=== PATIENT | female | born 1950 | race Caucasian/White ===

== ENCOUNTER 2019-12-20 15:54 | Emergency (ER) | payer OTHER, SELFPAY ==
[2019-12-20 16:20] VITALS: BP 172/82; PULSE 61; RESP 18; TEMP 36.8; O2SAT 97; BMI 26.6
--- NOTE | 2019-12-20 16:26 | ECG_ITS ---
Test Reason : CHEST PAIN Blood Pressure : / mmHG Vent. Rate : 070 BPM Atrial Rate : 070 BPM P-R Int : 154 ms QRS Dur : 088 ms QT Int : 400 ms P-R-T Axes : 043 031 067 degrees QTc Int : 432 ms Sinus rhythm with changeto Left bundle branch block in precordial leads Nonspecific ST abnormality Abnormal ECG Left bundle branch block is new Referred By: Ramon Mayo Electronically Signed By:DAVID MCCORD MD
--- NOTE | 2019-12-20 16:26 | XR_ITS ---
EXAMINATION: XR CHEST CLINICAL INFORMATION: Left-sided chest pain COMPARISON: Chest radiograph 08/18/2016 TECHNIQUE: Frontal view of the chest was obtained. FINDINGS: No significant abnormality is noted involving the heart, lungs, mediastinum, bony thorax or soft tissues. XR/XR chest 1V IMPRESSION: Unremarkable examination.
--- NOTE | 2019-12-20 16:43 | ED.CHESTPAIN ---
HPI - Chest Pain General Chief Complaint: Chest Pain Stated Complaint: CHEST PAIN Time Seen by Provider: 12/20/19 16:26 Source: patient Mode of arrival: ambulatory Limitations: no limitations History of Present Illness HPI narrative: patient with no significant past cardiac history complaining of vague left-sided chest pain followed by bronchitis for last 3 weeks took a course of Z-Latrell felt better but still having the pain especially in the back. At this time patient denies any significant cough no fever no chills but she used to have fever and chills in the past 1 week ago , patient also complaining of low back pain MD complaint: chest pain and chest discomfort Onset (ago): week(s) (3) Timing of current episode: constant and still present Prior episodes: No Onset: during rest Pain location: left chest Pain radiation: back Severity: mild Quality: dull Relieving factors: nothing Exacerbating factors: palpation and movement Associated symptoms: cough Treatment prior to arrival: none Related Data Previous Rx's Medication Instructions Recorded tramadol 50 mg PO Q6H PRN #20 tab 12/20/19 Allergies Allergy/AdvReac Type Severity Reaction Status Date / Time No Known Allergies Allergy Verified 12/20/19 16:20 [No Known Allergies*] Review of Systems Review of Systems: REVIEW OF SYSTEMS: Pertinent positives and negatives are stated above in the history. GEN: no fevers, chills, fatigue HEENT: no nasal congestion, sore throat, ear pain NEURO: no headache, dizziness, focal weakness PULM: no cough, shortness of breath CV: no palpitations, LE edema ABD: no abdominal pain, nausea, vomiting, diarrhea : no dysuria, urgency, frequency SKIN: no rash ROS otherwise negative x 10 PMFSH Past Medical History Medical History No known health problems Social History Social History Alcohol intake: unknown Smoking Status: Never smoker Use of substances other than those prescribed or required for medical reasons: No Advance Directives: No Advance Directives Information Provided: Yes Physical Exam Vital Signs: Vital Signs: Last Vital Signs Temp 98.2 F 12/20/19 16:20 Pulse 61 12/20/19 16:20 Resp 18 12/20/19 20:57 BP 172/82 H 12/20/19 16:20 Pulse Ox 97 12/20/19 16:20 Body Mass Index 26.6 VITAL SIGNS: Reviewed. GENERAL: Well developed, well nourished, in no acute distress. HEAD: Normocephalic/atraumatic, EYES: PERRLA No pallor/icterus noted OROPHARYNX: Oral mucosa moist no oral lesions NECK: Supple, no adenopathy LUNGS: Normal breath sounds. No adventitious sounds or accessory muscle use CARDIOVASCULAR: Regular rate and rhythm without noted murmurs, no JVD or lower extremity edema. ABDOMEN: Soft, non-tender, non-distended with normal bowel sounds. No rigidity. No guarding. No palpable masses or hernias noted MUSCULOSKELETAL: No tenderness, deformities, EXTREMITIES: No cyanosis or edema. SKIN: no rashes, ulcerations, jaundice, pallor, or petechiae NEUROLOGIC: Alert and oriented x 3. Strength and sensation to light touch were grossly intact normal speech MDM - Chest Pain MDM Narrative Medical decision making narrative: patient nonspecific pain in the left side of the chest elevated D-dimer CTA is negative for PE or any acute pathology, EKG showed a left bundle branch block which is new as compared to previous EKG troponin is negative patient been having pain mostly in the back for last 3 weeks after bronchitis episode likely musculoskeletal pain discharge her home on tramadol Differential Diagnosis Differential diagnosis: Likely stable angina and atypical chest pain Lab Data Result diagrams: 12/20/19 16:58 12/20/19 16:58 Labs: Lab Results 12/20/19 12/20/19 12/20/19 Range/Units 16:58 16:58 16:58 WBC 8.3 (4.8-10.8) X10*3/uL RBC 4.94 (4.20-5.50) X10*6/uL Hgb 13.8 (12.0-16.0) g/dl Hct 41.1 (37-47) % MCV 83.2 (80-98) fL MCH 27.9 (27.0-33.0) pg MCHC 33.6 (31.0-35.0) g/dl RDW 12.8 (11.0-16.0) % Plt Count 237 (160-400) X10*3/uL MPV 10.0 (9.4-12.3) fL Immature Gran % (Auto) 0.5 H (0.0-0.4) % Neut % (Auto) 74.4 H (45-73) % Lymph % (Auto) 16.1 L (20-40) % Boyd % (Auto) 7.3 (2-11) % Eos % (Auto) 1.2 (0-4) % Baso % (Auto) 0.5 (0-2) % Lymph # (Auto) 1.3 (1.2-4.9) X10*3/uL Boyd # (Auto) 0.6 (0.1-1.2) X10*3/uL Eos # (Auto) 0.1 (0.0-0.4) X10*3/uL Baso # (Auto) 0.0 (0.0-0.2) X10*3/uL Abs Immat Gran (auto) 0.04 H (0.00-0.03) X10*3/uL Absolute Neuts (auto) 6.2 (2.0-8.3) X10*3/uL Absolute Nucleated RBC 0.000 (0.0-0.012) X10*3/uL Nucleated RBC % (auto) 0.0 (0.0-0.2) /100WBC PT 11.3 (10.8-13.0) SEC INR 1.0 (0.9-1.1) APTT 29.6 (24.1-38.0) SEC D-Dimer 2619 NG/ML Sodium 142 (135-145) mmol/L Potassium 3.9 (3.3-5.1) mmol/l Chloride 106 (96-108) mmol/L Carbon Dioxide 30 H (22-29) mmol/L Anion Gap 10 L (12-20) BUN 9 (9-16) mg/dL Creatinine 0.75 (0.5-1.4) mg/dL Estim Creat Clear Calc TNP Estimated GFR > 60 Random Glucose 104 (60-115) mg/dL Calcium 8.7 (8.4-10.2) mg/dL Total Bilirubin 0.6 (0.0-1.0) mg/dL Direct Bilirubin 0.3 (0.0-0.5) mg/dL AST 14 (5-31) U/L ALT 16 (0-31) U/L Alkaline Phosphatase 67 (39-117) U/L Troponin I High Sens (<3.5-17.0) ng/L B-Natriuretic Peptide (<100) pg/mL Total Protein 6.6 (6.5-8.0) g/dL Albumin 4.3 (3.5-5.0) g/dL Lipase 66 (8-78) U/L Urine Color Urine Appearance Urine pH (5.0-8.0) Ur Specific [place] (1.005-1.025) Urine Protein (NEG-TRACE) MG/DL Urine Glucose (UA) (NEG) MG/DL Urine Ketones (NEG) MG/DL Urine Blood (NEG) Urine Nitrite (NEG) Ur Leukocyte Esterase (NEG) 12/20/19 12/20/19 12/20/19 Range/Units 16:58 16:58 16:58 WBC (4.8-10.8) X10*3/uL RBC (4.20-5.50) X10*6/uL Hgb (12.0-16.0) g/dl Hct (37-47) % MCV (80-98) fL MCH (27.0-33.0) pg MCHC (31.0-35.0) g/dl RDW (11.0-16.0) % Plt Count (160-400) X10*3/uL MPV (9.4-12.3) fL Immature Gran % (Auto) (0.0-0.4) % Neut % (Auto) (45-73) % Lymph % (Auto) (20-40) % Boyd % (Auto) (2-11) % Eos % (Auto) (0-4) % Baso % (Auto) (0-2) % Lymph # (Auto) (1.2-4.9) X10*3/uL Boyd # (Auto) (0.1-1.2) X10*3/uL Eos # (Auto) (0.0-0.4) X10*3/uL Baso # (Auto) (0.0-0.2) X10*3/uL Abs Immat Gran (auto) (0.00-0.03) X10*3/uL Absolute Neuts (auto) (2.0-8.3) X10*3/uL Absolute Nucleated RBC (0.0-0.012) X10*3/uL Nucleated RBC % (auto) (0.0-0.2) /100WBC PT (10.8-13.0) SEC INR (0.9-1.1) APTT (24.1-38.0) SEC D-Dimer NG/ML Sodium (135-145) mmol/L Potassium (3.3-5.1) mmol/l Chloride (96-108) mmol/L Carbon Dioxide (22-29) mmol/L Anion Gap (12-20) BUN (9-16) mg/dL Creatinine (0.5-1.4) mg/dL Estim Creat Clear Calc Estimated GFR Random Glucose (60-115) mg/dL Calcium (8.4-10.2) mg/dL Total Bilirubin (0.0-1.0) mg/dL Direct Bilirubin (0.0-0.5) mg/dL AST (5-31) U/L ALT (0-31) U/L Alkaline Phosphatase (39-117) U/L Troponin I High Sens 4.3 (<3.5-17.0) ng/L B-Natriuretic Peptide 34 (<100) pg/mL Total Protein (6.5-8.0) g/dL Albumin (3.5-5.0) g/dL Lipase (8-78) U/L Urine Color STRAW Urine Appearance CLEAR Urine pH 7.0 (5.0-8.0) Ur Specific [place] <= 1.005 (1.005-1.025) Urine Protein NEG (NEG-TRACE) MG/DL Urine Glucose (UA) NEG (NEG) MG/DL Urine Ketones NEG (NEG) MG/DL Urine Blood NEG (NEG) Urine Nitrite NEG (NEG) Ur Leukocyte Esterase NEG (NEG) ECG Data ECG #1: Attestation: I personally reviewed and interpreted this ECG as follows: ECG interpretation date: 12/20/19 Prior ECG tracings: available for review Interpretation: Normal sinus rhythm with heart rate 70 , left bundle branch block normal axis no acute ST T wave changes, LBBB is new as compared to in 2017 Discharge Plan Discharge Clinical Impression: Acute myofascial pain Patient Disposition: Home, Self-Care Instructions: Musculoskeletal Pain (ED) Additional Instructions: take pain medication as prescribed and follow with primary care doctor Prescriptions: New tramadol 50 mg tablet 50 mg PO Q6H PRN (Reason: pain) Qty: 20 RF: 0
[2019-12-20 17:06] LABS: MANUAL DIFF FLAG NO
[2019-12-20 17:09] LABS: Glucose Urine UA NEG (NEG); Leukocyte Esterase Urine NEG (NEG); Nitrite Urine NEG (NEG); Specific Gravity - Urine <= 1.005 (1.005-1.025); Urine Blood NEG (NEG); Urine Ketones NEG (NEG); Urine Protein NEG (NEG-TRACE)
[2019-12-20 17:13] LABS: Appearance Urine CLEAR; Color Urine STRAW
[2019-12-20 17:15] LABS: Basophils Percent Auto 0.5 % (0-2); Eosinophils Absolute Auto 0.1 X10*3/uL (0.0-0.4); Eosinophils Percent Auto 1.2 % (0-4); Hematocrit 41.1 % (37-47); Hemoglobin 13.8 g/dl (12.0-16.0); Imm Gran Abs Auto 0.04 X10*3/uL (0.00-0.03); Imm Gran Pct Auto 0.5 % (0.0-0.4); Lymphocytes Absolute Auto 1.3 X10*3/uL (1.2-4.9); Lymphocytes Percent Auto 16.1 % (20-40); Mean Corpuscular HGB Conc 33.6 g/dl (31.0-35.0); Mean Corpuscular Hemoglobin 27.9 pg (27.0-33.0); Mean Corpuscular Volume 83.2 fL (80-98); Monocytes Absolute Auto 0.6 X10*3/uL (0.1-1.2); Monocytes Percent Auto 7.3 % (2-11); Neutrophils Absolute Auto 6.2 X10*3/uL (2.0-8.3); Neutrophils Percent Auto 74.4 % (45-73); Platelet Count 237 X10*3/uL (160-400); Red Blood Count 4.94 X10*6/uL (4.20-5.50); Red Cell Distribution Width 12.8 % (11.0-16.0); White Blood Count 8.3 X10*3/uL (4.8-10.8)
[2019-12-20 17:21] LABS: Prothrombin Time 11.3 SEC (10.8-13.0)
[2019-12-20 17:24] LABS: Partial Thromboplastin Time 29.6 SEC (24.1-38.0)
[2019-12-20 17:35] LABS: Alanine Aminotransferase 16 U/L (0-31); Albumin Level 4.3 g/dL (3.5-5.0); Alkaline Phosphatase 67 U/L (39-117); Anion Gap 10 (12-20); Aspartate Amino Transferase 14 U/L (5-31); Bilirubin Direct 0.3 mg/dL (0.0-0.5); Bilirubin Total 0.6 mg/dL (0.0-1.0); Blood Urea Nitrogen 9 mg/dL (9-16); Calcium 8.7 mg/dL (8.4-10.2); Carbon Dioxide 30 mmol/L (22-29); Chloride 106 mmol/L (96-108); Estimated Glomerular Filt Rate > 60; Glucose Random 104 mg/dL (60-115); Lipase 66 U/L (8-78); Potassium 3.9 mmol/l (3.3-5.1); Sodium 142 mmol/L (135-145); Total Protein 6.6 g/dL (6.5-8.0)
[2019-12-20 17:39] LABS: B Type Natriuretic Peptide 34 pg/mL (<100)
[2019-12-20 17:46] LABS: D Dimer 2619 NG/ML
[2019-12-20] MEDS: Ketorolac Tromethamine 30 MG/ML VIAL IVPUSH (18:06)
[2019-12-20] MEDS: 0.9 % Sodium Chloride 1,000 ML 999 ML IVCONT (18:07)
--- NOTE | 2019-12-20 18:20 | CT_ITS ---
EXAMINATION: CT ANGIOGRAM OF THE CHEST WITH AND WITHOUT CONTRAST (CT PULMONARY ANGIOGRAM FOR PE) CLINICAL INFORMATION: Reason for Exam left-sided chest pain elevated D-dimer COMPARISON: CTA chest 08/19/2016 TECHNIQUE: Prior to contrast administration, noncontrast localization images were obtained. Subsequently, multidetector volumetric imaging was performed from the thoracic inlet to below the diaphragms following the administration of 63 mLOmnipaque 350 intravenous contrast. No contrast reaction reported Sagittal, coronal, and MIP oblique sagittal reformatted images were obtained on the CT workstation, uploaded to PACS, and reviewed. This CT examination was performed using dose optimization techniques as appropriate, variously including the following: *Automated exposure control *Adjustment of mA and/or kV according to patient size (this includes techniques or standardized protocols for targeted exams where dose is matched to indication/reason for exam; i.e. extremities or head) *Use of iterative reconstruction technique Total exam dose-length product 240 mGy-cm FINDINGS: QUALITY OF STUDY/CONTRAST BOLUS: Satisfactory. PULMONARY ARTERIES: No central or segmental pulmonary emboli. THORACIC AORTA: No aneurysm or dissection. LUNG: No focal consolidation, nodules or masses. PLEURA: No pleural effusion or pneumothorax. MEDIASTINUM: Normal heart size. No pericardial effusion. No hilar or mediastinal lymphadenopathy. No evidence of septal bowing or right heart strain. CHEST WALL/AXILLA: No axillary or internal mammary lymphadenopathy. OSSEOUS STRUCTURES: Mild degenerative changes present in the spine along with a bone island in the T7 vertebral body which is unchanged. UPPER ABDOMEN: Small hiatal hernia is present. No reflux of contrast into the hepatic veins to suggest elevated right heart pressures. CT/CT angio chest PE protocol IMPRESSION: 1. No evidence of pulmonary emboli. 2. A cause for the patient's left-sided chest pain is not found. 3. A small hiatal hernia is present. VTE: negative
--- NOTE | 2019-12-20 20:47 | PC.NURSE ---
Patient to be medicated upon return to ED Bed [address] Scan. Pt visibly upset, but cooperative with staff regarding delays in care since arrival to ED. This RN and Yoshi Balderrama, Clinical Coordinator spoke with this patient, and was able to de-escalate patient. Pt is understanding, and states I'm sorry, you're all wonderful, but I'm just very stressed about my heart and my lungs, and I just want to know what's wrong and get out of here if I can .
[2019-12-20 20:57] VITALS: RESP 18
[2019-12-20] MEDS: Morphine Sulfate 4 MG/ML CARTRIDGE IVPUSH (20:57)
[2019-12-20] MEDS: ondansetron HCL 4 MG/2 ML VIAL IVPUSH (20:57)
[2019-12-20] MEDS: iohexoL 350 MG/ML 100 ML INFUS..BTL IV (21:07)
[2019-12-20 22:08] LABS: Troponin-I High Sensitivity 4.3 ng/L (<3.5-17.0)
== END 2019-12-20 22:30 | disposition home or self-care (01) ==
PROVIDERS: Emergency Provider Internal Medicine
DX: M79.18 Myalgia, other site (principal); R07.9 Chest pain, unspecified; M54.5 Low back pain; Z79.899 Other long term (current) drug therapy
CPT/HCPCS: 36415; 71045; 71275; 80048; 80076; 81003; 83690; 83880; 84484; 85025; 85379; 85610; 85730; 93005; 96361; 96374; 96375; 99284; J1885; J2270; J2405; Q9967

== ENCOUNTER → 2019-12-24 14:27 | Outpatient (BNVA) | payer OTHER, SELFPAY | PROVIDERS: PCP Internal Medicine; Referring Provider Internal Medicine; Visit Provider Internal Medicine | DX: R07.89 Other chest pain (principal) | CPT/HCPCS: 99212 ==

== ENCOUNTER 2020-02-18 14:10 | Outpatient (REF) | payer OTHER, SELFPAY | END 2020-02-18 14:11 | disposition home or self-care (01) | LOC: HO.LAB 14:10 | PROVIDERS: Visit Provider Internal Medicine | DX: Z20.822 Contact with and (suspected) exposure to COVID-19 (principal) | CPT/HCPCS: 36415; C9803; U0003 ==

== ENCOUNTER 2022-09-20 10:07 | Outpatient (REF) | payer OTHER, SELFPAY ==
--- NOTE | ~2022-09-20 | US_ITS ---
EXAMINATION: US ABDOMEN COMPLETE CLINICAL INFORMATION: Generalized abdominal pain. COMPARISON: Ultrasound abdomen 11/29/2013 and 07/04/2013. TECHNIQUE: Real-time imaging of the abdominal viscera. FINDINGS: PANCREAS: Normal. ABDOMINAL AORTA: The proximal, mid, and distal segments are normal in caliber. INFERIOR VENA CAVA: Visualized portions are normal. LIVER: The liver is normal in size. The liver contour is normal. Echotexture is increased probably representing fatty infiltration No focal hepatic lesion. There is no intrahepatic biliary duct dilatation seen. GALLBLADDER: The gallbladder is physiologically distended without evidence of stones, sludge, polyps, wall thickening or pericholecystic fluid. COMMON BILE DUCT: Normal in caliber measuring 0.6 cm in diameter. RIGHT KIDNEY: 4 5 3 mm stone in the lower pole. No hydronephrosis or focal parenchymal lesions. The kidney measures 8.7 cm in maximum dimension. LEFT KIDNEY: 1.6 x 0.8 x 1.4 cm peripelvic cyst in the lower pole. No imaging follow-up recommended. Pelvic fullness. No hydronephrosis or renal calculi. The kidney measures 9.0 cm in maximum dimension. SPLEEN: Normal. The spleen measures 8.9 cm in maximum dimension. FREE FLUID: None. US/US abdomen complete IMPRESSION: Echogenic liver probably representing fatty infiltration. Small right renal stone.
[2022-09-20 11:19] LABS: MANUAL DIFF FLAG NO
[2022-09-20 12:08] LABS: Basophils Absolute Auto 0.1 X10*3/uL (0.0-0.2); Eosinophils Absolute Auto 0.4 X10*3/uL (0.0-0.4); Eosinophils Percent Auto 4.9 % (0-4); Hematocrit 42.6 % (37.0-47.0); Hemoglobin 14.3 g/dl (12.0-16.0); Imm Gran Abs Auto 0.05 X10*3/uL (0.00-0.03); Imm Gran Pct Auto 0.6 % (0.0-0.4); Lymphocytes Absolute Auto 2.2 X10*3/uL (1.2-4.9); Lymphocytes Percent Auto 25.1 % (20-40); Mean Corpuscular HGB Conc 33.6 g/dl (31.0-35.0); Mean Corpuscular Hemoglobin 28.1 pg (27.0-33.0); Mean Corpuscular Volume 83.9 fL (80.0-98.0); Mean Platelet Volume 9.9 fL (9.4-12.3); Monocytes Absolute Auto 0.8 X10*3/uL (0.1-1.2); Monocytes Percent Auto 9.6 % (2-11); Neutrophils Absolute Auto 5.1 x10*3/uL (2.0-8.3); Neutrophils Percent Auto 58.8 % (45-73); Platelet Count 304 X10*3/uL (160-400); Red Blood Count 5.08 X10*6/uL (4.20-5.50); Red Cell Distribution Width 12.5 % (11.0-16.0); White Blood Count 8.7 X10*3/uL (4.8-10.8)
[2022-09-20 13:15] LABS: Alanine Aminotransferase 12 U/L (0-31); Alkaline Phosphatase 70 U/L (39-117); Anion Gap 11 (12-20); Aspartate Amino Transferase 15 U/L (5-31); Bilirubin Direct 0.3 mg/dL (0.0-0.5); Bilirubin Total 0.7 mg/dL (0.0-1.0); Blood Urea Nitrogen 10 mg/dL (9-16); Calcium 9.7 mg/dL (8.4-10.2); Carbon Dioxide 29 mmol/L (22-29); Chloride 103 mmol/L (96-108); Estimated Glomerular Filt Rate > 60; Glucose Random 95 mg/dL (60-115); Lipase 42 U/L (8-78); Potassium 3.4 mmol/L (3.3-5.1); Sodium 140 mmol/L (135-145); Total Protein 6.8 g/dL (6.5-8.0)
[2022-09-20 13:26] LABS: Amylase 51 U/L (28-100)
[2022-09-20 13:33] LABS: TSH reflex Free T4 1.66 uIU/mL (0.32-4.0)
== END 2022-09-20 10:08 | disposition home or self-care (01) ==
LOC: HO.US 10:07
PROVIDERS: PCP Family Medicine; Visit Provider Internal Medicine
DX: R10.84 Generalized abdominal pain (principal); R63.4 Abnormal weight loss
CPT/HCPCS: 36415; 76700; 80048; 80076; 82150; 83690; 84443; 85025

== ENCOUNTER 2024-02-21 10:00 | Day surgery (SDC) | payer OTHER, SELFPAY ==
[2024-02-19 14:01] VITALS: BMI 27.5
--- NOTE | 2024-02-20 13:23 | HO.ANESPROP2 ---
Documented by User: Anisha Balbuena NP 02/20/24 13:28 HPI - Anesthesia Eval Consult details Narrative: 73yo F for Upper Endoscopy and Colonoscopy Follows [facility] for htn, aortic calc. Last seen 05/2023 after stress testing for report of CP - Nuc stress negative for ischemia PMFSH Active Problems Active Problems: All Active Problems Chest wall pain (Acute) Past Medical History Medical History Osteopenia LBBB (left bundle branch block) Hepatic steatosis Hiatal hernia Aortic calcification White coat syndrome with hypertension IBS (irritable bowel syndrome) HTN (hypertension) Esophageal stricture GERD (gastroesophageal reflux disease) Asthma Chest wall pain Surgical History Surgical History History of esophagogastroduodenoscopy (EGD) H/O colonoscopy Social History Social History (Updated 03/23/23 @ 12:40 by Fior Cagle RN) Are you a primary health care marketing manager to a significant other at home: No Do you presently have visiting nurse or other home services: No Alcohol intake: unknown Patient Tobacco Use Status: Never used Tobacco Use of substances other than those prescribed or required for medical reasons: No Have you been hit, kicked, punched, or otherwise hurt by someone within the past year? If so, by whom?: No Are you DNR?: No Advance Directives: No Advance Directives Information Provided: Yes Recently lost weight without trying: No Nutrition Risks: No Nutritional Risk Meds Allergies Allergy/AdvReac Type Severity Reaction Status Date / Time No Known Allergies Allergy Verified 12/24/19 14:48 [No Known Allergies*] Home Medications ?Medication ?Instructions ?Recorded ?Confirmed ?Last Taken ?Type albuterol sulfate 90 mcg/actuation 2 puff inhalation Q6H PRN 12/24/19 02/19/24 Unknown History aerosol inhaler Shortness Of Breath Or Wheezing pantoprazole 40 mg tablet,delayed 40 mg PO DAILY 12/24/19 02/19/24 Unknown History release hydrochlorothiazide 50 mg tablet 50 mg PO DAILY 03/23/23 02/19/24 Unknown History hyoscyamine sulfate 0.125 mg tablet 0.25 mg PO QID PRN Abdominal 03/23/23 02/19/24 Unknown History Discomfort ondansetron HCl 4 mg tablet 4 mg PO Q4-6H PRN Nausea 03/23/23 02/19/24 Unknown History atorvastatin 10 mg tablet 10 mg PO DAILY 02/19/24 02/19/24 Unknown History losartan 25 mg tablet 25 mg PO DAILY 02/19/24 02/19/24 Unknown History Exam Height,Weight and Vital Signs: Height 5 ft 2.91 in Weight 70.3 kg Pertinent Lab Results Pertinent Lab Results: Outside CBC and BMP 10/2023 [place] Narrative Narrative: Nuc Stress 04/2023 Conclusions Summary 1. Myocardial perfusion imaging is normal without any fixed or reversible perfusion defect after Regadenoson stress test. 2. LV function is normal with an E.F. of 57 % at rest and mildly reduced after stress to 53 % with stress with otherwise normal wall motion and thickening. 3. EKG portion of the stress test is reported separately. ECHO 2022 Summary 1. The left ventricular size is normal. There is mild septal hypertrophy. Normal LV systolic function. Ejection fraction is 55-60%. There are no regional wall motion abnormalities. Grade I, mild diastolic dysfunction with impaired LV relaxation. 2. The right ventricle is normal in size and function. An accurate pulmonary artery pressure could not be obtained. 3. Biatrial size is normal. 4. There is no hemodynamically significant valvular disease. Comparison No prior study available for comparison. Assessment and Plan Assessment Anesthesia Assessment: Chart Reviewed Documented by User: Bassem De La Rosa MD 02/21/24 11:23 [facility] Past Medical History Medical History Osteopenia LBBB (left bundle branch block) Hepatic steatosis Hiatal hernia Aortic calcification White coat syndrome with hypertension IBS (irritable bowel syndrome) HTN (hypertension) Esophageal stricture GERD (gastroesophageal reflux disease) Asthma Chest wall pain Family History Family history of problems with anesthesia: No Surgical History Surgical History History of esophagogastroduodenoscopy (EGD) H/O colonoscopy History of Problems with Anesthesia: No Social History Social History (Updated 03/23/23 @ 12:40 by Fior Cagle RN) Are you a primary health care marketing manager to a significant other at home: No Do you presently have visiting nurse or other home services: No Alcohol intake: unknown Patient Tobacco Use Status: Never used Tobacco Use of substances other than those prescribed or required for medical reasons: No Have you been hit, kicked, punched, or otherwise hurt by someone within the past year? If so, by whom?: No Are you DNR?: No Advance Directives: No Advance Directives Information Provided: Yes Recently lost weight without trying: No Nutrition Risks: No Nutritional Risk Meds Allergies Allergy/AdvReac Type Severity Reaction Status Date / Time No Known Allergies Allergy Verified 12/24/19 14:48 [No Known Allergies*] Home Medications ?Medication ?Instructions ?Recorded ?Confirmed ?Last Taken ?Type albuterol sulfate 90 mcg/actuation 2 puff inhalation Q6H PRN 12/24/19 02/19/24 Unknown History aerosol inhaler Shortness Of Breath Or Wheezing pantoprazole 40 mg tablet,delayed 40 mg PO DAILY 12/24/19 02/19/24 Unknown History release hydrochlorothiazide 50 mg tablet 50 mg PO DAILY 03/23/23 02/19/24 Unknown History hyoscyamine sulfate 0.125 mg tablet 0.25 mg PO QID PRN Abdominal 03/23/23 02/19/24 Unknown History Discomfort ondansetron HCl 4 mg tablet 4 mg PO Q4-6H PRN Nausea 03/23/23 02/19/24 Unknown History atorvastatin 10 mg tablet 10 mg PO DAILY 02/19/24 02/19/24 Unknown History losartan 25 mg tablet 25 mg PO DAILY 02/19/24 02/19/24 Unknown History Exam Airway Mallampati Class: II TM Dist: <=3cm Neck ROM: Full Partial: Upper Heart: see above. ok. Lungs: ok. Assessment and Plan Assessment Anesthesia Assessment: Anesthesia Plan Discussed Final Anesthetic Review Family History of Problems with Anesthesia: No History of Problems with Anesthesia: No NPO: Yes ASA Class: III Final Preanesthetic Review: No Changes in Pt Med Stat, Meds/Allgs Chart Reviewed, Consent Obtained/Reviewed and Anes Risks/Benef Reviewed Patient Risk: Intermediate Procedure Risk: Intermediate Anesthetic Plan Anesthetic Plan: Agree w/ Assess. and Plan and TIVA Disposition: Standard PACU
[2024-02-21 10:33] VITALS: BMI 25.9
[2024-02-21 10:52] VITALS: BP 155/87; PULSE 72; RESP 18; TEMP 36.3; O2SAT 97
[2024-02-21] MEDS: Lactated Ringers 1,000 ML 100 ML IVCONT (11:00)
[2024-02-21 13:00] VITALS: BP 133/87; PULSE 63; RESP 16; TEMP 36.2; O2SAT 98
--- NOTE | 2024-02-21 13:00 | PM.OP ---
Brief Operative Note Date of Service: 02/21/24 Pre-op diagnosis: GERD, Dysphagia, Screening Post-op diagnosis: other (Hiatal hernia, Esophageal stricture, Diverticulosis) Procedure: EGD with biopsies and Balloon dilation with a 15mm to 16.5mm to 18mm balloon, Colonoscopy to the cecum with biopsies Surgeon: Denis Vegas MD Anesthesia: MAC Was an Airborne Weapons Technical Manager used for this Procedure?: No Estimated blood loss (mL): 2.0 Pathology: other (A. Descending duodenum B. Gastric antrum C. Ascending colon D. Descending colon) Condition: stable Disposition: PACU
[2024-02-21 13:15] VITALS: BP 155/97; PULSE 65; RESP 16; TEMP 36.2; O2SAT 98
--- NOTE | 2024-02-22 01:23 | OP_ITS ---
DATE OF SERVICE: 02/21/2024 SURGEON: Denis Vegas MD INDICATIONS: The patient presents for evaluation of gastroesophageal reflux, nausea, dysphagia, colorectal cancer screening with personal history of colon polyps, and irregular bowel movements with diarrhea. Full consent has been obtained from her for the procedure, including risks of bleeding and perforation. PREOPERATIVE DIAGNOSIS: Dysphagia, gastroesophageal reflux, colorectal cancer screening, history of tubular adenoma of the colon, and diverticulosis. POSTOPERATIVE DIAGNOSIS: PROCEDURE PERFORMED: Esophagogastroduodenoscopy with biopsies and balloon dilation of distal esophageal stricture, and colonoscopy to the cecum with biopsies. ESTIMATED BLOOD LOSS: COMPLICATIONS: ANESTHESIA: Monitored anesthesia care. ASSISTANTS: SPECIMENS: DESCRIPTION OF PROCEDURE: The patient was placed in the left lateral decubitus position. The Olympus video gastroscope was passed in the posterior oropharynx and upper esophagus under direct vision. The scope was passed slowly into the distal esophagus. The gastroesophageal junction was seen at 35 cm. There was no evidence of any esophagitis nor any obvious evidence of Friedman mucosa. However, there did appear to be a circumferential fibrotic stricture at the gastroesophageal junction. This did allow passage of the scope into the stomach after some gentle pressure. There was no sign of any mass. There was a moderate-sized hiatal hernia noted. The scope was advanced to the pylorus, and the duodenum was cannulated to the descending portion. The duodenum including the bulb appeared normal without mass or ulceration. Biopsies were obtained of the 2nd and 3rd portions of the duodenum. The scope was withdrawn back to the stomach. The gastric antrum had some areas of edema and erythema consistent with some mild chronic gastritis, but there was no evidence of any erosions or ulceration. There was good peristalsis. Biopsies were obtained from the antrum. The scope was retroflexed visualizing the proximal stomach carefully, which appeared normal, without any sign of mass or ulceration. The scope was withdrawn back in the esophagus. I did use a [employer] incremental balloon to dilate the distal esophageal stricture from a 15 mm to 16.5 mm to 18 mm balloon at the recommended pressure for between 30 and 60 seconds each. Post dilation, there was clear disruption of the stricture with some heme noted. The scope was then withdrawn through the remainder of the esophagus, which appeared normal. The scope was withdrawn from the patient. She was turned around for the colonoscopy. The digital rectal exam revealed no abnormalities. The Olympus video pediatric colonoscope was entered into the rectum and advanced to the cecum with the assistance of abdominal wall pressure. Once in the cecum, I did identify normal-appearing cecal pouch with appendiceal orifice and a normal-appearing ileocecal valve. There was transillumination of light deep in the right lower quadrant. The entire cecum and ileocecal valve, including the appendiceal orifice, appeared normal. The scope was slowly withdrawn assessing all mucosal surfaces carefully. Preparation was excellent. I did not visualize any sign of polyps, colitis, nor angiodysplasias. Random biopsies were obtained in the ascending and descending colon. There was a mild amount of sigmoid diverticulosis. In the rectum, scope was retroflexed visualizing some small internal hemorrhoids, but no other pathology. The rectal mucosa appeared normal. The scope was straightened and withdrawn from the patient. She tolerated the procedure well and was returned to the recovery area in stable condition. IMPRESSION: 1. Distal esophageal stricture, status post balloon dilation. 2. Hiatal hernia. 3. Rule out celiac disease. 4. Mild gastritis. 5. Rule out microscopic colitis. 6. Mild diverticulosis. 7. Internal hemorrhoids. PLAN: The results of the biopsies will be checked. I did advise to continue her pantoprazole 40 mg b.i.d. in relation to the hiatal hernia and the finding of the stricture. She was advised not to use any aspirin or NSAIDs for at least 2 weeks. Given her age and a negative colonoscopy in regard to polyps, I do not think she would need any further screening colonoscopies. She will be seen for followup in the office in regard to the upper GI findings and symptomatology in regard to her reflux and dysphagia. This has been discussed with the patient and her daughter as well. MD MISHA Foote/JENNA / [id number] DEJA
== END 2024-02-21 13:53 | disposition home or self-care (01) ==
PROVIDERS: PCP Family Medicine; Visit Provider Internal Medicine
PROC: (CPT 45380; principal; 2024-02-21 11:50)
DX: Z12.11 Encounter for screening for malignant neoplasm of colon (principal); Z86.0101 Personal history of adenomatous and serrated colon polyps; K57.30 Diverticulosis of large intestine without perforation or abscess without bleeding; K64.8 Other hemorrhoids; K58.1 Irritable bowel syndrome with constipation; K21.9 Gastro-esophageal reflux disease without esophagitis; K22.2 Esophageal obstruction; K29.50 Unspecified chronic gastritis without bleeding; K44.9 Diaphragmatic hernia without obstruction or gangrene; I10 Essential (primary) hypertension; J45.909 Unspecified asthma, uncomplicated; Z79.899 Other long term (current) drug therapy
CPT/HCPCS: 45380; 43249; 43239; 88305; 88342; J2003; J2704

== ENCOUNTER → 2024-07-26 02:04 | Outpatient (BNV) | payer OTHER, SELFPAY | PROVIDERS: Emergency Provider Emergency Medicine; PCP Family Medicine; Visit Provider Radiology Diagnostic Radiology | DX: R07.9 Chest pain, unspecified (principal) | CPT/HCPCS: 71045 ==

== ENCOUNTER 2024-07-26 02:38 | Emergency (ER) | payer OTHER, SELFPAY ==
--- NOTE | 2024-07-26 | ECG_ITS ---
Test Reason : CHEST PAIN Blood Pressure : */* mmHG Vent. Rate : 74 BPM Atrial Rate : 74 BPM P-R Int : 142 ms QRS Dur : 142 ms QT Int : 436 ms P-R-T Axes : 34 -10 134 degrees QTcB Int : 483 ms Normal sinus rhythm Left bundle branch block Abnormal ECG When compared with ECG of 20-Dec-2019 16:19, Left bundle branch block is now Present throughout the strip Referred By: Generic ED Physician Electronically Signed By: LANI RODRIGUEZ MD
--- NOTE | ~2024-07-26 | XR_ITS ---
CLINICAL HISTORY: chest pain Chest X-ray, 1 View COMPARISON: None FINDINGS: No consolidation. No pleural effusion. No pneumothorax. No cardiomegaly. No acute fracture. IMPRESSION: No acute findings. This document has been electronically signed by: Henry Lopez MD on 07/26/2024 04:09:39
[2024-07-26 02:45] VITALS: BP 166/82; PULSE 90; RESP 18; TEMP 37.1; O2SAT 97; BMI 28.4
[2024-07-26 03:11] LABS: Basophils Absolute Auto 0.1 X10*3/uL (0.0-0.2); Basophils Percent Auto 1.2 % (0-2); Eosinophils Absolute Auto 0.2 X10*3/uL (0.0-0.4); Eosinophils Percent Auto 3.2 % (0-4); Hematocrit 42.1 % (37.0-47.0); Hemoglobin 14.8 g/dl (12.0-16.0); Imm Gran Abs Auto 0.03 X10*3/uL (0.00-0.03); Imm Gran Pct Auto 0.5 % (0.0-0.4); Lymphocytes Absolute Auto 1.8 X10*3/uL (1.2-4.9); Lymphocytes Percent Auto 28.1 % (20-40); MANUAL DIFF FLAG NO; Mean Corpuscular HGB Conc 35.2 g/dl (31.0-35.0); Mean Corpuscular Volume 79.6 fL (80.0-98.0); Mean Platelet Volume 9.7 fL (9.4-12.3); Monocytes Absolute Auto 0.7 X10*3/uL (0.1-1.2); Monocytes Percent Auto 10.2 % (2-11); Neutrophils Absolute Auto 3.7 x10*3/uL (2.0-8.3); Neutrophils Percent Auto 56.8 % (45-73); Platelet Count 293 X10*3/uL (160-400); Red Blood Count 5.29 X10*6/uL (4.20-5.50); Red Cell Distribution Width 12.3 % (11.0-16.0); White Blood Count 6.6 X10*3/uL (4.8-10.8)
[2024-07-26 03:38] LABS: Alanine Aminotransferase 23 U/L (0-31); Albumin Level 4.6 g/dL (3.5-5.0); Alkaline Phosphatase 75 U/L (39-117); Anion Gap 15 (12-20); Aspartate Amino Transferase 25 U/L (5-31); Bilirubin Total 0.9 mg/dL (0.0-1.0); Blood Urea Nitrogen 9 mg/dL (9-16); Calcium 9.7 mg/dL (8.4-10.2); Carbon Dioxide 27 mmol/L (22-29); Chloride 100 mmol/L (96-108); Creatinine Clr Calc Pharmacy 57.3; Estimated Glomerular Filt Rate > 60; Glucose Random 120 mg/dL (60-115); Lipase 51 U/L (8-78); Potassium 3.2 mmol/L (3.3-5.1); Sodium 139 mmol/L (135-145); Total Protein 7.1 g/dL (6.5-8.0)
[2024-07-26 03:45] LABS: Troponin-I High Sensitivity 3.1 ng/L (<3.5-17.0)
--- NOTE | 2024-07-26 03:52 | ED_ITS ---
HPI - Chest Pain General Chief Complaint: Chest Pain Stated Complaint: chest pains Time Seen by Provider: 07/26/24 03:41 Source: patient Mode of arrival: ambulatory Limitations: no limitations History of Present Illness ED Provider: Dr. Smiley Fallon HPI narrative: Patient comes to the emergency room complaining of a abdominal discomfort and bilateral lower rib pain that started 2 hours prior to arrival. Patient states that she is known to have IBS, does not take any medications. Patient states that this time the abdominal pain lasted more than usual in the same was complaining of pain in her lower ribs. The patient's daughter became concerned and asked her to come to the emergency room to get checked out. Patient denies any chest pain or shortness of breath. Patient states that her abdomen does not hurt. Related Data Home Medications ?Medication ?Instructions ?Recorded ?Confirmed albuterol sulfate 90 mcg/actuation 2 puff inhalation Q6H PRN 12/24/19 02/19/24 aerosol inhaler Shortness Of Breath Or Wheezing pantoprazole 40 mg tablet,delayed 40 mg PO DAILY 12/24/19 02/19/24 release hydrochlorothiazide 50 mg tablet 50 mg PO DAILY 03/23/23 02/19/24 hyoscyamine sulfate 0.125 mg tablet 0.25 mg PO QID PRN Abdominal 03/23/23 02/19/24 Discomfort ondansetron HCl 4 mg tablet 4 mg PO Q4-6H PRN Nausea 03/23/23 02/19/24 atorvastatin 10 mg tablet 10 mg PO DAILY 02/19/24 02/19/24 losartan 25 mg tablet 25 mg PO DAILY 02/19/24 02/19/24 Previous Rx's ?Medication ?Instructions ?Recorded dicyclomine 20 mg tablet 20 mg PO QID 10 days #40 tabs 07/26/24 Allergies Allergy/AdvReac Type Severity Reaction Status Date / Time No Known Allergies Allergy Verified 07/26/24 02:47 [No Known Allergies*] Review of Systems 2 Review of Systems: Constitutional : No Weight loss, No Fever, No Chills, No Night Sweats, No Fatigue, No Malaise ENT/Mouth : No Hearing loss, No Ear Pain, No Nasal Congestion, No Sinus Pain, No Hoarseness, No sore throat, No Rhinorrhea, No Swallowing Difficulty Eyes: No Eye Pain, No Swelling, No Redness, No Foreign Body, No Discharge, No Vision Changes Cardiovascular : Complaining of lower rib pain bilaterally, No Chest Pain, No SOB, No Dyspnea on Exertion, No Orthopnea, No Edema, No Palpitations Respiratory : No Cough, No Sputum, No Wheezing, No Smoke Exposure, No Dyspnea Gastrointestinal : No Nausea, No Vomiting, No Diarrhea, No Constipation, complaining of abdominal cramping, known to have IBS Genitourinary : no irregular bleeding, No Dysuria, No Urinary Frequency, No Hematuria, No Urinary Incontinence, No Urgency, No Flank Pain, No Urinary Flow Changes, No Hesitancy Musculoskeletal : No joint pain, No Myalgias, No Joint Swelling Skin : No Skin Lesions, No rash Neuro : No Weakness, No Numbness, No Paresthesias, No Loss of Consciousness, No Dizziness, No Headache Psych : No Anxiety/Panic, No Depression, No SI/HI/AH/VH, No Social Issues, Heme/Lymph: No Bruising, No Bleeding,No Lymphadenopathy Endocrine : No Polyuria, No Polydipsia, No Temperature Intolerance [facility] Past Medical History Medical History Osteopenia LBBB (left bundle branch block) Hepatic steatosis Hiatal hernia Aortic calcification White coat syndrome with hypertension IBS (irritable bowel syndrome) HTN (hypertension) Esophageal stricture GERD (gastroesophageal reflux disease) Asthma Chest wall pain Surgical History History of esophagogastroduodenoscopy (EGD) H/O colonoscopy Social History Social History (Updated 03/23/23 @ 12:40 by Fior Cagle RN) Are you a primary rn complex care to a significant other at home: No Do you presently have visiting nurse or other home services: No Alcohol intake: unknown Patient Tobacco Use Status: Never used Tobacco Smoked in Last 30 Days: No Use of substances other than those prescribed or required for medical reasons: No Advance Directives: Yes Advance Directives Information Provided: Yes Advance Directives on File: No Do you have a plan to hurt others: No Plan Physical Exam 2 Vital Signs: Vital Signs: Last Vital Signs Temp 97.8 F 07/26/24 05:19 Pulse 62 07/26/24 05:19 Resp 12 07/26/24 05:19 BP 143/71 H 07/26/24 05:19 Pulse Ox 99 07/26/24 05:19 O2 Del Method Room Air 07/26/24 05:19 BMI result Body Mass Index 28.4 Const: Other: Appearance: Alert. Oriented X3. No acute distress. Eyes: Pupils equal, round and reactive to light. ENT: Pharynx normal. Neck: Normal inspection. Neck supple. No lymph nodes noted. No crepitus CVS: Normal heart rate and rhythm. Pulses normal. Normal S1 and S2, +2 systolic murmur Respiratory: No respiratory distress. Breath sounds normal. No Wheezing. No rales Abdomen: Soft and nontender. No rigidity. No distention. Skin: Skin warm and dry. Normal skin color. Normal skin turgor. Extremities: No lower extremity edema. No Lacerations. No Rash Neuro: Oriented X 3. No motor deficit. No sensory deficit. Moving all extremities. No slurred speech. CN 2 through 12 grossly intact Psych: calm, cooperative, normal affect Course Course Course Narrative: Patient complaining of abdominal and lower rib pain. No chest pain or shortness of breath. All of patient's labs and imaging pending Medications Administered Discontinued Medications Generic Name Dose Route Start Last Admin Trade Name Freq PRN Reason Stop Dose Admin Al Hydroxide/Mg Hydroxide 30 ml 07/26/24 04:19 07/26/24 04:43 Magnesium Hydrox/Alum Hydrox 30 Ml Oral.Susp PO 07/26/24 04:20 30 ml ONCE ONE Administration Dicyclomine HCl 10 mg 07/26/24 04:19 07/26/24 04:43 Dicyclomine Hcl 10 Mg Capsule PO 07/26/24 04:20 10 mg ONCE ONE Administration Lidocaine HCl 15 ml 07/26/24 04:19 07/26/24 04:43 Lidocaine Hcl Viscous 2 % 15 Ml Solution MUCOUS MEM 07/26/24 04:20 15 ml ONCE ONE Administration Ondansetron HCl 4 mg 07/26/24 04:19 07/26/24 04:42 Ondansetron Odt 4 Mg Tab.Rapdis TRANSLINGU 07/26/24 04:20 4 mg ONCE ONE Administration Medical Decision Making Medical Decision Making [facility] Narrative: My interpretation of EKG: Normal sinus rhythm, left bundle branch block, nonspecific ST changes, QTC 483. No EKG changes since at least December of 2019. Patient states that she is aware as she has a left bundle-branch block. My interpretation of labs: No significant abnormality in patient's hematology or chemistry, troponin negative Chest x-ray does not show any acute abnormalities Troponin x2 negative Patient states that occasionally she feels a bit of cramping in the abdomen. Patient states that she has not taking anything for IBS. Patient has an appointment this week. I discussed with the patient that we can start her on Bentyl to see if it helps her with her symptoms and then she can discuss any further treatment with her PCP. Patient agrees with plan Differential Diagnosis Differential Diagnoses: The differential diagnosis associated with the presentation includes (ACS, IBS, musculoskeletal pain) Admission/Observation Consideration of admission/observation: Escalation of care including admission/observation considered (Given patient's age and symptoms, observation was considered) Lab Data MDM Lab Attestation statement: I reviewed the patient's lab results. 07/26/24 03:06 07/26/24 03:06 Labs: Lab Results 07/26/24 07/26/24 Range/Units 03:06 05:06 WBC 6.6 (4.8-10.8) X10*3/uL RBC 5.29 (4.20-5.50) X10*6/uL Hgb 14.8 (12.0-16.0) g/dl Hct 42.1 (37.0-47.0) % MCV 79.6 L (80.0-98.0) fL MCH 28.0 (27.0-33.0) pg MCHC 35.2 H (31.0-35.0) g/dl RDW 12.3 (11.0-16.0) % Plt Count 293 (160-400) X10*3/uL MPV 9.7 (9.4-12.3) fL Immature Gran % (Auto) 0.5 H (0.0-0.4) % Neut % (Auto) 56.8 (45-73) % Lymph % (Auto) 28.1 (20-40) % [place] % (Auto) 10.2 (2-11) % Eos % (Auto) 3.2 (0-4) % Baso % (Auto) 1.2 (0-2) % Lymph # (Auto) 1.8 (1.2-4.9) X10*3/uL [place] # (Auto) 0.7 (0.1-1.2) X10*3/uL Eos # (Auto) 0.2 (0.0-0.4) X10*3/uL Baso # (Auto) 0.1 (0.0-0.2) X10*3/uL Abs Immat Gran (auto) 0.03 (0.00-0.03) X10*3/uL Absolute Neuts (auto) 3.7 (2.0-8.3) x10*3/uL Absolute Nucleated RBC 0.000 (0.0-0.012) X10*3/uL Nucleated RBC % (auto) 0.0 (0.0-0.2) /100WBC Sodium 139 (135-145) mmol/L Potassium 3.2 L (3.3-5.1) mmol/L Chloride 100 (96-108) mmol/L Carbon Dioxide 27 (22-29) mmol/L Anion Gap 15 (12-20) BUN 9 (9-16) mg/dL Creatinine 0.88 (0.5-1.4) mg/dL Estim Creat Clear Calc 57.3 Estimated GFR > 60 Random Glucose 120 H (60-115) mg/dL Calcium 9.7 (8.4-10.2) mg/dL Total Bilirubin 0.9 (0.0-1.0) mg/dL AST 25 (5-31) U/L ALT 23 (0-31) U/L Alkaline Phosphatase 75 (39-117) U/L Troponin I High Sens 3.1 3.1 (<3.5-17.0) ng/L Total Protein 7.1 (6.5-8.0) g/dL Albumin 4.6 (3.5-5.0) g/dL Lipase 51 (8-78) U/L Independent Interpretation I performed an independent interpretation of an: Plain X-Ray Radiology Impression Discussion of test interpretation with radiology: I have reviewed the radiologist's reading. Radiologist Impression: FINDINGS: No consolidation. No pleural effusion. No pneumothorax. No cardiomegaly. No acute fracture. IMPRESSION: No acute findings. Critical Care Time Critical Care Time Critical Care Time: Yes Total Critical Care Time: 35 Attestation: I have personally provided critical care time. Time includes review of lab data, radiology results, discussion with consultants, and monitoring for potential decompensation. Intervention performed as documented. Discharge Plan Discharge Clinical Impression: Atypical chest pain, Irritable bowel syndrome (IBS) Patient Disposition: Home, Self-Care Instructions: Irritable Bowel Syndrome (ED), Chest Wall Pain (ED) Additional Instructions: Please follow-up with your primary care physician tomorrow. If you have any worsening or new symptoms, please return to the emergency room or call 911 Prescriptions: New dicyclomine 20 mg tablet 20 mg PO QID 10 Days Qty: 40 0RF No Action hydrochlorothiazide 50 mg Tablet 50 mg PO DAILY ondansetron HCl 4 mg tablet 4 mg PO Q4-6H PRN (Reason: Nausea) hyoscyamine sulfate 0.125 mg Tablet 0.25 mg PO QID PRN (Reason: Abdominal Discomfort) atorvastatin 10 mg Tablet 10 mg PO DAILY losartan 25 mg Tablet 25 mg PO DAILY pantoprazole 40 mg tablet,delayed release (DR/EC) 40 mg PO DAILY albuterol sulfate 90 mcg/actuation HFA aerosol inhaler 2 puff inhalation Q6H PRN (Reason: Shortness Of Breath Or Wheezing) Print Language: Wolof
[2024-07-26] MEDS: Ondansetron ODT 4 MG TAB.RAPDIS TRANSLINGU (04:42)
[2024-07-26] MEDS: Dicyclomine HCl 10 MG CAPSULE PO (04:43)
[2024-07-26] MEDS: Magnesium Hydrox/Alum Hydrox 30 ML ORAL.SUSP PO (04:43)
[2024-07-26] MEDS: Lidocaine HCl Viscous 2 % 15 ML SOLUTION MUCOUS MEM (04:43)
[2024-07-26 05:19] VITALS: BP 143/71; PULSE 62; RESP 12; TEMP 36.6; O2SAT 99
[2024-07-26 05:33] LABS: Troponin-I High Sensitivity 3.1 ng/L (<3.5-17.0)
[2024-07-26 05:39] VITALS: BP 143/71; PULSE 62; RESP 12; TEMP 36.6; O2SAT 99
== END 2024-07-26 05:40 | disposition home or self-care (01) ==
PROVIDERS: Emergency Provider Emergency Medicine; PCP Family Medicine
DX: K58.9 Irritable bowel syndrome, unspecified (principal); R07.89 Other chest pain; R07.81 Pleurodynia; R10.9 Unspecified abdominal pain
CPT/HCPCS: 36415; 71045; 80053; 83690; 84484; 85025; 93005; 99283; 99284

== ENCOUNTER → 2024-07-26 02:41 | Outpatient (BNV) | payer OTHER, SELFPAY | PROVIDERS: Emergency Provider Emergency Medicine; PCP Family Medicine; Visit Provider Internal Medicine Cardiovascular Disease | DX: I44.7 Left bundle-branch block, unspecified (principal) | CPT/HCPCS: 93010 ==

== ENCOUNTER 2024-11-02 16:35 | Emergency (ER) | payer OTHER, SELFPAY ==
--- OUTSIDE RECORDS SUMMARY | 2023-08-28 08:50 | XMS_ITS ---
Author Organization [facility] Address [address] [place] [address] Care Team Providers Care [employer] Professional Name Role Phone Bakari Adkins Primary Care Provider Unavaila ble Denis Vegas [phone] Vivian Rai N.P. Unavailable Unavaila ble REASON FOR VISIT gerd, colon screening, dysphagia Encounters Encounter Location Date Provider Diagnosis [facility] Out[facility] [address] [place] [phone] 08/28/2023 Denis Vegas Plan Of Treatment No Information Progress Notes * ELEUTERIO GABEDOB:1950 ( 74 yo F)Acc No.[id number]:08/28/2023 EGD and COL/MAC Patient: GABE MANN Provider: Whit Vegas MD :1950 A ge:73 Y S ex:Female Date:08/28/2023 Address:[address] [place] [address], [id number] Pcp:Bakari Adkins Subjective: * Chief Complaints: * 1 . Gerd, colon screening, dysphagia. * Medical History: Objective: * Vitals: Assessment: Plan: * Treatment: * * The named appointment provid er may or may not be the originator of this progress note, and it is not deemed complete until electronically signed by the appointment provider. Sign off status: Pending * Provider: Whit Vegas MD Date: 0 08/28/2023 Generated for Anthony cortez/Alina/Chichiransmitting on: 0 11/02/2024 05:16 PM EDT
--- OUTSIDE RECORDS SUMMARY | 2024-02-21 07:50 | XMS_ITS ---
Author Organization [facility] Address [address] [place] [address] Care Team Providers Care Corporate General Manager Name Role Phone Bakari Adkins Primary Care Provider Unavaila ble Denis Vegas Unavailable [phone] Vivian Rai N.P. Unavailable Unavaila ble REASON FOR VISIT GERD,COLON SCREENING DYSPHAGIA Problems Problem Type SNOMED Code ICD Code Onset Dates Problem Status W/U Status Risk Notes Problem Diverticular disease of colon (853641653) Diverticulosis of large intestine without perforation or abscess without bleeding (K57.30) Active confirmed Problem Stricture of esophagus (65921756) Esophageal obstruction (K22.2) Active confirmed Problem Gastro-esophagea l reflux disease without esophagitis (665860596) Gastro-esophageal reflux disease without esophagitis (K21.9) Active confirmed Problem Atrophic gastritis (96566871) Antral gastritis (K29.50) Active confirmed Problem Dysphagia (61301868) Dysphagia (R13.10) Active confirmed Encounters Encounter Location Date Provider Diagnosis [facility] [place] [address] [place] [phone] 02/21/2024 Denis Vegas Diarrhea R19.7 ; P ersonal history of colonic polyps Z86.0100 ; Diverticulosis of large intestine without perforation or abscess without bleeding K57.30 ; Other hemorrhoids K64.8 ; Esophageal obstruction K22.2 ; Gastro-esophageal reflux disease without esophagitis K21.9 ; Hiatal hernia K44.9 ; Antral gastritis K29.50 and Dysphagia R13.10 Assessments Encounter Date Diagnosis (ICD Code) Assessment Notes Treatment Notes Treatment Clinical Notes Section Notes 02/21/2024 Diarrhea (ICD-10 - R19.7) 02/21/2024 Personal history of colonic polyps (ICD-10 - Z86.0100) 02/21/2024 Diverticulosis of large intestine without perforation or abscess without bleeding (ICD-10 - K57.30) 02/21/2024 Other hemorrhoids (ICD-10 - K64.8) 02/21/2024 Esophageal obstruction (ICD-10 - K22.2) 02/21/2024 Gastro-esophageal reflux disease without esophagitis (ICD-10 - K21.9) 02/21/2024 Hiatal hernia (ICD-10 - K44.9) 02/21/2024 Antral gastritis (ICD-10 - K29.50) 02/21/2024 Dysphagia (ICD-10 - R13.10) Plan Of Treatment No Information Progress Notes * GABE MCCLELLANDOB:1950 ( 74 yo F)Acc No.[id number]:02/21/2024 EGD and COL/MAC Patient: GABE MANN Provider: Whit Vegas MD :1950 A ge:73 Y S ex:Female Date:02/21/2024 Address:[address] [place], [place] [id number] Pcp:Bakari Adkins Subjective: * Chief Complaints: * 1 . GERD,COLON SCREENING DYSPHAGIA. * Medical History: Objective: * Vitals: Assessment: * Assessment: 1. D iarrhea - R19.7 (Primary) 2 . P ersonal history of colonic polyps - Z86.0100 3 . D iverticulosis of large intestine without perforation or abscess without bleeding - K57.30 4 . O ther hemorrhoids - K64.8 5 . E sophageal obstruction - K22.2 6 . G kristina-esophageal reflux disease without esophagitis - K21.9 7 . H iatal hernia - K44.9 8 . A ntral gastritis - K29.50 9 . D ysphagia - R13.10 Plan: * Treatment: * Procedure Codes: 4 5380 COLONOSCOPY AND BIOPSY, 22523 ESOPH ENDOSCOPY, DILATION, 93033 UPPER GI ENDOSCOPY, BIOPSY, Modifiers: 59 * * The named appointment provid er may or may not be the originator of this progress note, and it is not deemed complete until electronically signed by the appointment provider. Sign off status: Pending * Provider: Whit Vegas MD Date: 0 02/21/2024 Generated for Anthony cortez/Alina/Cristiana on: 0 11/02/2024 05:17 PM EDT
--- OUTSIDE RECORDS SUMMARY | 2024-06-26 10:40 | XMS_ITS ---
Author Organization [facility] Address [address] [place] [id number] Care Team Providers Care Senior Automation Engineer Name Role Phone Bakari Adkins Primary Care Provider Unavaila ble Denis Vegas [phone] Vivian Rai N.P. Unavailable Unavaila ble Encounters Encounter Location Date Provider Diagnosis [facility] [address] [place] [phone] 06/26/2024 Denis Vegas Plan Of Treatment No Information Progress Notes * GABE MCCLELLANDOB:1950 ( 74 yo F)Acc No.[id number]:06/26/2024 Progress Notes Patient: GABE MANN Provider: Whit Vegas MD :1950 A ge:73 Y S ex:Female Date:06/26/2024 Address:[address] [place], [place] [id number] Pcp:Bakari Adkins Subjective: * Chief Complaints: * * Medical History: Objective: * Vitals: Assessment: Plan: * Treatment: * * The named appointment provid er may or may not be the originator of this progress note, and it is not deemed complete until electronically signed by the appointment provider. Sign off status: Pending * Provider: Whit Vegas MD Date: 0 06/26/2024 Generated for Printi ng/Faxing/eTransmitting on: 0 11/02/2024 05:17 PM EDT
--- NOTE | ~2024-11-02 | XR_ITS ---
CLINICAL HISTORY: pain 4 view left knee Comparison: None provided Findings: No acute fracture. No dislocation. Mild degenerative changes in all 3 compartments. No erosions. There is demineralization. Small joint effusion. Significant anterior suprapatellar, prepatellar and infrapatellar soft tissue swelling. IMPRESSION: 1. No acute osseous findings. 2. Significant anterior soft tissue swelling and small joint effusion. This document has been electronically signed by: Deisi Cuellar MD on 11/02/2024 18:14:32
[2024-11-02 17:01] VITALS: BP 182/84; PULSE 76; RESP 16; TEMP 36.3; O2SAT 98; BMI 26.3
--- NOTE | 2024-11-02 17:01 | ED.LOWEXIN ---
HPI - Extremity Injury (Lower) General Chief Complaint: Extremity Injury, Lower Stated Complaint: ? knee infection (sent by ronnie galvin) Time Seen by Provider: 11/02/24 18:05 Source: patient Limitations: no limitations History of Present Illness ED Provider: Xiomara Gonzalez PA-C HPI Narrative: 74-year-old female with a history of hyperlipidemia, hypertension, GERD who was not on anticoagulation, presents with left knee pain and swelling x2 weeks. Patient states she tripped and fell, landing directly on the knee. Initially, the knee was extremely swollen and painful, her symptoms have improved. Overlying swelling and bruising noted anteriorly. The patient is ambulatory can fully flex and extend the knee. Patient has yet to see her orthopedist, when she called for an appointment, she described her symptoms, they were concerned for potential infection, she was advised to come to the emergency room for assessment. Denies redness, warmth, extreme pain or fever. Related Data Home Medications ?Medication ?Instructions ?Recorded ?Confirmed albuterol sulfate 90 mcg/actuation 2 puff inhalation Q6H PRN 12/24/19 02/19/24 aerosol inhaler Shortness Of Breath Or Wheezing pantoprazole 40 mg tablet,delayed 40 mg PO DAILY 12/24/19 02/19/24 release hydrochlorothiazide 50 mg tablet 50 mg PO DAILY 03/23/23 02/19/24 hyoscyamine sulfate 0.125 mg tablet 0.25 mg PO QID PRN Abdominal 03/23/23 02/19/24 Discomfort ondansetron HCl 4 mg tablet 4 mg PO Q4-6H PRN Nausea 03/23/23 02/19/24 atorvastatin 10 mg tablet 10 mg PO DAILY 02/19/24 02/19/24 losartan 25 mg tablet 25 mg PO DAILY 02/19/24 02/19/24 Previous Rx's ?Medication ?Instructions ?Recorded dicyclomine 20 mg tablet 20 mg PO QID 10 days #40 tabs 07/26/24 Allergies Allergy/AdvReac Type Severity Reaction Status Date / Time No Known Allergies (No Known Allergy Verified 11/02/24 17:05 Allergies*) Review of Systems Review of Systems: Yes all other systems are reviewed and are negative Constitutional: Constitutional: Denies fatigue and Denies fever(s) Musculoskeletal: Musculoskeletal: Reports arthralgias and Reports joint swelling Integumentary/Breasts: Skin/Breast: Denies erythema Endocrine: Endocrine: Denies fatigue [facility] Past Medical History Attestation statement: The following information was validated with the patient. Medical History Osteopenia LBBB (left bundle branch block) Hepatic steatosis Hiatal hernia Aortic calcification White coat syndrome with hypertension IBS (irritable bowel syndrome) HTN (hypertension) Esophageal stricture GERD (gastroesophageal reflux disease) Asthma Chest wall pain Surgical History History of esophagogastroduodenoscopy (EGD) H/O colonoscopy Social History Social History (Updated 03/23/23 @ 12:40 by Fior Cagle RN) Are you a primary managed care analyst to a significant other at home: No Do you presently have visiting nurse or other home services: No Alcohol intake: unknown Patient Tobacco Use Status: Never used Tobacco Smoked in Last 30 Days: No Use of substances other than those prescribed or required for medical reasons: No Advance Directives: No Advance Directives Information Provided: No Do you have a plan to hurt others: No Plan Physical Exam Vital Signs: Vital Signs: Last Vital Signs Temp 97.4 F 11/02/24 17:01 Pulse 71 11/02/24 18:10 Resp 16 11/02/24 18:10 BP 160/86 H 11/02/24 18:10 Pulse Ox 98 11/02/24 18:10 O2 Del Method Room Air 11/02/24 18:10 BMI result Body Mass Index 26.3 Const: Other: Alert well-appearing Orientation/consciousness: patient oriented x3 Resp: Effort & Inspection: normal respiratory effort Cardio: Other: Normal peripheral perfusion Skin: Other: Warm dry no rash Neuro: General: patient oriented x3, gait normal, no focal motor deficits and CN's II-XI intact bilaterally Extrem: Other: The left knee has swelling anteriorly with the overlying ecchymosis, no excessive warmth, no erythema, patient has full flexion and extension, she is ambulatory with a steady gait Psych: Other: Cooperative Course Course Course Narrative: This is an RME: Additional HPI, ROS, PE not included below will be deferred to primary provider. RME assessment and note performed by: Yuki Penaloza PA-C This is a [id number], HTN and GERD, who presents to the ER with complaints of right knee pain. Reports that she fell several weeks ago and injured her right knee. She states that she tripped and fell and landed directly onto her left knee. She went to an urgent care several weeks ago where they ruled out a fracture. Reports that she has called [facility] and they are unable to see her until 11/13. Left knee with large joint effusion, with ecchymosis, some warmth, and eschar noted. She states that it does appear to be getting better however orthopedics were concerned that this may be infected and wanted her to be evaluated. Plan: Labs, x-ray, further ER evaluation needed. Medical Decision Making Medical Decision Making MDM Narrative: 74-year-old female with a history of hyperlipidemia, hypertension, GERD who was not on anticoagulation, presents with left knee pain and swelling x2 weeks. Patient states she tripped and fell, landing directly on the knee. Initially, the knee was extremely swollen and painful, her symptoms have improved. Overlying swelling and bruising noted anteriorly. The patient is ambulatory can fully flex and extend the knee. Patient has yet to see her orthopedist, when she called for an appointment, she described her symptoms, they were concerned for potential infection, she was advised to come to the emergency room for assessment. Denies redness, warmth, extreme pain or fever. No relevant chronic issues History: Per patient I have considered the following differential diagnoses: Fracture, dislocation, contusion, sprain, septic joint, bursitis, cellulitis Plan: X-ray and labs were obtained from triage, she has a small joint effusion, her labs unremarkable no leukocytosis, she has been afebrile. Based on my exam, she simply has a contusion, there was no evidence of cellulitis, certainly not a septic joint. She can continue to follow up with her orthopedic service, and use conservative measures for her contusion. I have independently reviewed the following tests: Labs: No leukocytosis, not anemic, no electrolyte abnormality noted X-ray left knee:Findings: No acute fracture. No dislocation. Mild degenerative changes in all 3 compartments. No erosions. There is demineralization. Small joint effusion. Significant anterior suprapatellar, prepatellar and infrapatellar soft tissue swelling. IMPRESSION: 1. No acute osseous findings. 2. Significant anterior soft tissue swelling and small joint effusion. Differential Diagnosis Differential Diagnoses: The differential diagnosis associated with the presentation includes See medical decision-making Admission/Observation Consideration of admission/observation: Escalation of care including admission/observation considered Not applicable Lab Data MDM Lab Attestation statement: I reviewed the patient's lab results. 11/02/24 17:15 11/02/24 17:15 Labs: Lab Results 11/02/24 Range/Units 17:15 WBC 6.9 (4.8-10.8) X10*3/uL RBC 4.78 (4.20-5.50) X10*6/uL Hgb 13.4 (12.0-16.0) g/dl Hct 38.7 (37.0-47.0) % MCV 81.0 (80.0-98.0) fL MCH 28.0 (27.0-33.0) pg MCHC 34.6 (31.0-35.0) g/dl RDW 13.0 (11.0-16.0) % Plt Count 316 (160-400) X10*3/uL MPV 9.6 (9.4-12.3) fL Immature Gran % (Auto) 0.6 H (0.0-0.4) % Neut % (Auto) 64.2 (45-73) % Lymph % (Auto) 23.5 (20-40) % Crane % (Auto) 8.9 (2-11) % Eos % (Auto) 1.9 (0-4) % Baso % (Auto) 0.9 (0-2) % Lymph # (Auto) 1.6 (1.2-4.9) X10*3/uL Crane # (Auto) 0.6 (0.1-1.2) X10*3/uL Eos # (Auto) 0.1 (0.0-0.4) X10*3/uL Baso # (Auto) 0.1 (0.0-0.2) X10*3/uL Abs Immat Gran (auto) 0.04 H (0.00-0.03) X10*3/uL Absolute Neuts (auto) 4.4 (2.0-8.3) x10*3/uL Absolute Nucleated RBC 0.000 (0.0-0.012) X10*3/uL Nucleated RBC % (auto) 0.0 (0.0-0.2) /100WBC Sodium 138 (135-145) mmol/L Potassium 3.3 (3.3-5.1) mmol/L Chloride 103 (96-108) mmol/L Carbon Dioxide 26 (22-29) mmol/L Anion Gap 12 (12-20) BUN 11 (9-16) mg/dL Creatinine 1.01 (0.5-1.4) mg/dL Estim Creat Clear Calc 47.4 Estimated GFR 54 Random Glucose 121 H (60-115) mg/dL Calcium 9.4 (8.4-10.2) mg/dL Total Bilirubin 1.1 H (0.0-1.0) mg/dL AST 27 (5-31) U/L ALT 17 (0-31) U/L Alkaline Phosphatase 79 (39-117) U/L Total Protein 7.1 (6.5-8.0) g/dL Albumin 4.4 (3.5-5.0) g/dL Radiology Impression Discussion of test interpretation with radiology: I have reviewed the radiologist's reading. Discharge Plan Discharge Clinical Impression: Contusion of knee, left Patient Disposition: Home, Self-Care Instructions: Contusion in Adults (ED), P.R.I.C.E. Treatment (ED) Additional Instructions: There were no acute abnormalities noted on the x-ray other than a small collection of fluid anterior to the kneecap. There was no evidence of infection. See home care instructions. Ice in the area several times a day, elevating the leg while sitting, can help alleviate swelling and discomfort. If you develop discomfort you can use [id number] Tylenol 1000 mg taken every 8 hours. Keep your pending follow up with your orthopedist. Prescriptions: No Action hydrochlorothiazide 50 mg Tablet 50 mg PO DAILY ondansetron HCl 4 mg tablet 4 mg PO Q4-6H PRN (Reason: Nausea) hyoscyamine sulfate 0.125 mg Tablet 0.25 mg PO QID PRN (Reason: Abdominal Discomfort) atorvastatin 10 mg Tablet 10 mg PO DAILY losartan 25 mg Tablet 25 mg PO DAILY dicyclomine 20 mg tablet 20 mg PO QID 10 Days Qty: 40 0RF pantoprazole 40 mg tablet,delayed release (DR/EC) 40 mg PO DAILY albuterol sulfate 90 mcg/actuation HFA aerosol inhaler 2 puff inhalation Q6H PRN (Reason: Shortness Of Breath Or Wheezing) Print Language: Azeri
--- OUTSIDE RECORDS SUMMARY | 2024-11-02 17:17 | XMS_ITS | Patient Health Record ---
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 Unavailable Unavaila ble Allergies No Known Allergies Results Component Value Reference Range Notes Pathology Reviewed date:08/01/2024 01:45:56 PM Interpretation: Performing Lab:[facility], [address] [place] [phone] Notes/Report: Reason For Referral Referring Provider First Name Bakari Referring Provider Last Name Jed Referred Organization [facility] Referred Provider Denis Tena Referred Address [facility] [address] [place] [phone], Referred Provider Specialty Gastroentero logy General Notes Lisy Gonzáles 024 03:30:18 PM EST > requested a BRAEDEN REFERRAL FOR EGD/COLON WITH DR TENA ON DX SCREENING AND DYSPHAGIA Referral Priority Routine Medications Medication SIG (Take, Route, Frequency, Duration) Notes Start Date End Date Status Pantoprazole Sodium 40 MG TAKE ONE TABLET BY MOUTH TWICE A DAY for 30 Active Allergy Relief 10 MG Oral for 30 Days Active Ondansetron 4 MG 1 tablet on the tongue and allow to dissolve as needed Orally Every 4 to 6 hours as needed for nausea for 30 day(s) 09/22/2022 Active Atorvastatin Calcium 10 MG Oral for 30 Days Active Dicyclomine HCl 20 MG Oral for 10 Days Active Dicyclomine HCl 10 MG 1 or 2 capsules Orally Every 6 hours if needed for abdominal cramps/discomfo rt for 30 days Please tell patient to stop her Hyoscyamine when she starts the Dicyclomine. Thanks very much 10/18/2022 Active Triamcinolone Acetonide 0.1 % External for 30 Days Active Linzess 145 MCG Oral for 30 Days PRN Active Ondansetron HCl 8 MG Oral for 10 Days Active Losartan Potassium 25 MG Oral for 100 Days Active Albuterol Sulfate HFA 108 (90 Base) MCG/ACT Inhalation for 25 Days Active hydroCHLOROthiazide 50 MG Oral for 90 Days Active Ondansetron HCl 4 MG 1 tablet Orally Every 6 hours as needed for nausea for 30 day(s) Please tell patient to stop her Hyoscyamine when she starts the Dicyclomine. Thanks very much 10/18/2022 Active Sucralfate 1 GM Oral for 15 Days Active Hyoscyamine Sulfate 0.125 MG 1-2 tablets Orally every 4-6 hours as needed for abdominal discomfort/cram ps for 30 days 08/30/2015 Not-Taking LORazepam 0.5 MG Oral for 5 Days Active hydroCHLOROthiazide 50 MG Oral for 90 Active Cepacol Sore Throat Ex St 15-3.6 MG Mouth/Throat for 1 Days Active Pantoprazole Sodium 40 MG Oral for 30 Days Active Immunizations Vaccine Route Administration Date Status Comme nts Influenza Unknown 12/06/2023 Administered Problems Problem Type SNOMED Code ICD Code Onset Dates Problem Status W/U Status Risk Notes Problem 425396983 Colon cancer screening (Z12.11) Active confirmed Problem Gastro-esophage al reflux disease without esophagitis (541274559) Gastro-esophageal reflux disease without esophagitis (K21.9) Active confirmed Problem 953502362 History of adenomatous polyp of colon (Z86.010) Active confirmed Problem Diverticular disease of colon (070660656) Diverticulosis of large intestine without perforation or abscess without bleeding (K57.30) Active confirmed Problem Irritable bowel syndrome (92275099) Irritable bowel syndrome without diarrhea (K58.9) Active confirmed Problem 873924919 Nausea (R11.0) Active confirmed Problem Dysphagia (50364076) Dysphagia (R13.10) Active confirmed Problem Stricture of esophagus (09100936) Esophageal obstruction (K22.2) Active confirmed Problem 456632096 Gastroesophageal reflux disease without esophagitis (K21.9) Active confirmed Problem 718820405 Gastroesophageal reflux disease, esophagitis presence not specified (K21.9) Active confirmed Problem 92922174 Esophageal stricture (K22.2) Active confirmed Problem 56077365 Dysphagia, unspecified type (R13.10) Active confirmed Problem 050888802 Irritable bowel syndrome with constipation (K58.1) Active confirmed Problem 42157306 Abdominal discomfort, generalized (R10.84) Active confirmed Problem Atrophic gastritis (39645704) Antral gastritis (K29.50) Active confirmed Vital Signs Temperature 97.3 degrees Fahrenheit 10/09/2024 Blood pressure diastolic 01 mm Hg 10/09/2024 Height 63.75 in 10/09/2024 Blood pressure systolic 001 mm Hg 10/09/2024 Weight 152.2 lbs 10/09/2024 BMI 26.33 kg/m2 10/09/2024 Encounters Encounter Location Date Provider Diagnosis [facility] Outpatient [address] [place] [id number] 02/21/2024 Denis Tena Diarrhea R19.7 ; Personal history of colonic polyps Z86.0100 ; Diverticulosis of large intestine without perforation or abscess without bleeding K57.30 ; Other hemorrhoids K64.8 ; Esophageal obstruction K22.2 ; Gastro-esophageal reflux disease without esophagitis K21.9 ; Hiatal hernia K44.9 ; Antral gastritis K29.50 and Dysphagia R13.10 [facility] [address] [place] [phone] 10/09/2024 Denis Tena Gastroesophageal ref lux disease, esophagitis presence not specified K21.9 ; Esophageal stricture K22.2 ; Abdominal discomfort, generalized R10.84 and Irritable bowel syndrome with constipation K58.1 [facility] [address] [place] [phone] 11/07/2023 Denis Tena Irritable bowel synd court with constipation K58.1 [facility] [address] [place] [phone] 02/09/2024 Denis Tena [facility] [address] [place] [phone] 02/20/2024 Denis Tena [facility] [address] [place] [phone] 02/22/2024 Denis [facility] [address] [place] [address] 03/01/2024 Denis Tena [facility] [address] [place] [address] 07/31/2024 Denis Tena Assessments Encounter Date Diagnosis (ICD Code) Assessment Notes Treatment Notes Treatment Clinical Notes Section Notes 02/21/2024 Diarrhea (ICD-10 - R19.7) 02/21/2024 Personal history of colonic polyps (ICD-10 - Z86.0100) 10/09/2024 Gastroesophageal reflux disease, esophagitis presence not specified (ICD-10 - K21.9) Continue the Pantoprazole twice a day Overall, Gabe appears well. She is not having any new or worrisome GI complaints. We did review her GI procedures from February in detail. I advised her to continue her pantoprazole twice a day as it seems to be working well for symptomatic relief of heartburn and she has had no recurrence of dysphagia. I advised her that would be important to continue that to hopefully prevent recurrence of the esophageal stricture, although I did advise her that is not a guarantee and she needs to call me if her dysphagia recurs such that we can schedule her for a follow-up endoscopy and dilation again. I did advise her that she should use a little MiraLAX every day to try to prevent constipation and hopefully cut down symptoms of the IBS with abdominal pain. I did advise her to use Dulcolax as needed for any significant constipation. She will continue to use dicyclomine as needed for abdominal cramping as well. We did review that she would not need any further screening colonoscopies given the negative exam in regard to polyps and her age. At this point, if things are stable, she would otherwise see me on an as needed basis. Gabe was comfortable with this plan. Thank you again for allowing me to have participated in Gabe's care. I shall continue to keep you advised of her progress as needed. Please do not hesitate to contact me if I can be of any further assistance in the future. 10/09/2024 Esophageal stricture (ICD-10 - K22.2) Call me if swallowing becomes a problem again Overall, Gabe appears well. She is not having any new or worrisome GI complaints. We did review her GI procedures from February in detail. I advised her to continue her pantoprazole twice a day as it seems to be working well for symptomatic relief of heartburn and she has had no recurrence of dysphagia. I advised her that would be important to continue that to hopefully prevent recurrence of the esophageal stricture, although I did advise her that is not a guarantee and she needs to call me if her dysphagia recurs such that we can schedule her for a follow-up endoscopy and dilation again. I did advise her that she should use a little MiraLAX every day to try to prevent constipation and hopefully cut down symptoms of the IBS with abdominal pain. I did advise her to use Dulcolax as needed for any significant constipation. She will continue to use dicyclomine as needed for abdominal cramping as well. We did review that she would not need any further screening colonoscopies given the negative exam in regard to polyps and her age. At this point, if things are stable, she would otherwise see me on an as needed basis. Gabe was comfortable with this plan. Thank you again for allowing me to have participated in Gabe's care. I shall continue to keep you advised of her progress as needed. Please do not hesitate to contact me if I can be of any further assistance in the future. 11/07/2023 Irritable bowel syndrome with constipation (ICD-10 - K58.1) 02/21/2024 Diverticulosis of large intestine without perforation or abscess without bleeding (ICD-10 - K57.30) 10/09/2024 Abdominal discomfort, generalized (ICD-10 - R10.84) Use the Dicyclomine as needed for abdominal cramps and intestinal spasms Overall, Gabe appears well. She is not having any new or worrisome GI complaints. We did review her GI procedures from February in detail. I advised her to continue her pantoprazole twice a day as it seems to be working well for symptomatic relief of heartburn and she has had no recurrence of dysphagia. I advised her that would be important to continue that to hopefully prevent recurrence of the esophageal stricture, although I did advise her that is not a guarantee and she needs to call me if her dysphagia recurs such that we can schedule her for a follow-up endoscopy and dilation again. I did advise her that she should use a little MiraLAX every day to try to prevent constipation and hopefully cut down symptoms of the IBS with abdominal pain. I did advise her to use Dulcolax as needed for any significant constipation. She will continue to use dicyclomine as needed for abdominal cramping as well. We did review that she would not need any further screening colonoscopies given the negative exam in regard to polyps and her age. At this point, if things are stable, she would otherwise see me on an as needed basis. Gabe was comfortable with this plan. Thank you again for allowing me to have participated in Gabe's care. I shall continue to keep you advised of her progress as needed. Please do not hesitate to contact me if I can be of any further assistance in the future. 02/21/2024 Other hemorrhoids (ICD-10 - K64.8) 10/09/2024 Irritable bowel syndrome with constipation (ICD-10 - K58.1) Use a little Miralax every day to prevent constipation Use a Dulcolax laxative for constipation Overall, Gabe appears well. She is not having any new or worrisome GI complaints. We did review her GI procedures from February in detail. I advised her to continue her pantoprazole twice a day as it seems to be working well for symptomatic relief of heartburn and she has had no recurrence of dysphagia. I advised her that would be important to continue that to hopefully prevent recurrence of the esophageal stricture, although I did advise her that is not a guarantee and she needs to call me if her dysphagia recurs such that we can schedule her for a follow-up endoscopy and dilation again. I did advise her that she should use a little MiraLAX every day to try to prevent constipation and hopefully cut down symptoms of the IBS with abdominal pain. I did advise her to use Dulcolax as needed for any significant constipation. She will continue to use dicyclomine as needed for abdominal cramping as well. We did review that she would not need any further screening colonoscopies given the negative exam in regard to polyps and her age. At this point, if things are stable, she would otherwise see me on an as needed basis. Gabe was comfortable with this plan. Thank you again for allowing me to have participated in Gabe's care. I shall continue to keep you advised of her progress as needed. Please do not hesitate to contact me if I can be of any further assistance in the future. 02/21/2024 Esophageal obstruction (ICD-10 - K22.2) 02/21/2024 Gastro-esophageal reflux disease without esophagitis (ICD-10 - K21.9) 02/21/2024 Hiatal hernia (ICD-10 - K44.9) 02/21/2024 Antral gastritis (ICD-10 - K29.50) 02/21/2024 Dysphagia (ICD-10 - R13.10) Plan Of Treatment Pending Test Test Name Order Date CHEM 7 PROFILE 09/07/2022 LIVER PROFILE 09/07/2022 CBC w DIFF 09/07/2022 NUC HIDA SCAN 12/02/2013 Amylase 09/07/2022 Lipase 09/07/2022 TSH reflex Free T4 09/07/2022 H pylori Ag Stool 09/07/2022 US abdomen complete 09/07/2022 Future Test Test Name Order Date UPPER GI ENDOSCOPY BALLOOON DILATION OF ESOPH 07/10/2015 UPPER GI ENDOSCOPY BALLOOON DILATION OF ESOPH 10/18/2022 COLONOSCOPY 10/18/2022 Insurance Providers Payer Name Payer Address Payer Phone Subscriber Number Group Number Insured Name Patient Relationship to Insured Coverage Start Date Coverage End Date [facility] [address] [place] [address] [id number] GABE MCCLELLAN Self - patient is the insured MEDICAID OF [facility] [address] [place] [address] [id number] GABE MCCLELLAN Self - patient is the insured Medical (General) History Medical History History ICD Code Denies AR,DM,CVA,renal disease Mild asthma GERD/Esophageal stricture- E GD in 10/2011- stricture dilated with a 16 to 18 mm balloon, small HH noted- has been on a PPI Tubular adenomas removed in 10/2011- sigm oid diverticulosis noted Irritable bowel syndrome wit h constipation and right upper quadrant pain- she had a negative gallbladder ultrasound and normal HIDA scan with CCK in 2013 Hypertension Hay fever Esophageal stricture dilated in February of 2016 up to a 15 mm balloon and then again in March of 2016 up to an 18 mm balloon. Repeat EGD with Dilation up to an 18mm balloon for a recurrent stricture that was dilated in 02/2024- bx negative for Hpylori and celiac disease Negative screening colonosco py in 02/2024- bx negative for microscopic colitis Surgical History Surgery Date(Month/Year)
[2024-11-02 17:20] LABS: MANUAL DIFF FLAG NO
[2024-11-02 17:42] LABS: Hematocrit 38.7 % (37.0-47.0); Hemoglobin 13.4 g/dl (12.0-16.0); Imm Gran Abs Auto 0.04 X10*3/uL (0.00-0.03); Imm Gran Pct Auto 0.6 % (0.0-0.4); Lymphocytes Absolute Auto 1.6 X10*3/uL (1.2-4.9); Mean Corpuscular HGB Conc 34.6 g/dl (31.0-35.0); Mean Corpuscular Hemoglobin 28.0 pg (27.0-33.0); Mean Corpuscular Volume 81.0 fL (80.0-98.0); NRBC Abs Auto 0.000 X10*3/uL (0.0-0.012); NRBC Pct Auto 0.0 /100WBC (0.0-0.2); Platelet Count 316 X10*3/uL (160-400); Red Blood Count 4.78 X10*6/uL (4.20-5.50); White Blood Count 6.9 X10*3/uL (4.8-10.8)
[2024-11-02 17:48] LABS: Alanine Aminotransferase 17 U/L (0-31); Albumin Level 4.4 g/dL (3.5-5.0); Alkaline Phosphatase 79 U/L (39-117); Anion Gap 12 (12-20); Aspartate Amino Transferase 27 U/L (5-31); Blood Urea Nitrogen 11 mg/dL (9-16); Calcium 9.4 mg/dL (8.4-10.2); Carbon Dioxide 26 mmol/L (22-29); Chloride 103 mmol/L (96-108); Creatinine Clr Calc Pharmacy 47.4; Estimated Glomerular Filt Rate 54; Potassium 3.3 mmol/L (3.3-5.1); Sodium 138 mmol/L (135-145); Total Protein 7.1 g/dL (6.5-8.0)
[2024-11-02 18:10] VITALS: BP 160/86; PULSE 71; RESP 16; O2SAT 98
[2024-11-02 19:30] VITALS: BP 145/74; PULSE 66; RESP 16; TEMP -17.7; TEMP 0; O2SAT 98
== END 2024-11-02 19:31 | disposition home or self-care (01) ==
PROVIDERS: Physician Assistant Medical; Emergency Provider Emergency Medicine Emergency Medical Services; PCP Family Medicine
DX: S80.02XA Contusion of left knee, initial encounter (principal); W01.0XXA Fall on same level from slipping, tripping and stumbling without subsequent striking against object, initial encounter; Y93.9 Activity, unspecified; Y92.9 Unspecified place or not applicable; Y99.9 Unspecified external cause status
CPT/HCPCS: 36415; 73564; 80053; 85025; 99284

== ENCOUNTER → 2024-11-02 17:06 | Outpatient (BNV) | payer OTHER, SELFPAY | PROVIDERS: PCP Family Medicine; Visit Provider Specialist | DX: M25.462 Effusion, left knee (principal) | CPT/HCPCS: 73564 ==